=== PATIENT | female | born 1980 | race Caucasian/White ===

== ENCOUNTER 2016-11-06 09:31 | Emergency (ER) | payer BC, MEDICAID ==
[~2016-11-06] VITALS: Ht 165.1 cm; Wt 108.9 kg
[~2016-11-06 09:31] MED LIST: AC325T PO; HYDR-3583 PO; IBP600T1 PO; LEVO500T69 PO; PREN1TAB39 PO
[2016-11-06] MEDS ORDERED: OMEP20TA7 PO (10:12)
[2016-11-06] MEDS ORDERED: ALPR1TAB2 PO (10:12)
[2016-11-06] MEDS ORDERED: ONDANSETRON 4 MG/2 ML (SDV) Z0FRAN IVP ONE (10:30)
[2016-11-06] MEDS ORDERED: NS IV 1000 ML 1,000 ML IV SCH (10:30)
[2016-11-06] MEDS ORDERED: FAMOTIDINE 20MG/2ML IV (PEPCID) IVP ONE (10:30)
[2016-11-06 10:39] LABS: BASOPHILS % (AUTO) 0 % (0-10); EOSINOPHILS # (AUTO) 0.1 10^3/uL (0.0-0.3); EOSINOPHILS % (AUTO) 1 % (0-10); LYMPHOCYTES # (AUTO) 3.3 X 10^3 (1.0-4.0); LYMPHOCYTES % (AUTO) 34 % (12-44); MEAN CORPUSCULAR HEMOGLOBIN 31 PG (25-34); MEAN CORPUSCULAR HGB CONC 34 G/DL (32-36); MEAN CORPUSCULAR VOLUME 90 FL (80-99); MEAN PLATELET VOLUME 10.4 FL (7.4-10.4); MONOCYTES # (AUTO) 0.7 X 10^3 (0.0-1.0); MONOCYTES % (AUTO) 8 % (0-12); NEUTROPHILS # (AUTO) 5.5 X 10^3 (1.8-7.8); NEUTROPHILS % (AUTO) 57 % (42-75); PLATELET COUNT 327 10^3/uL (130-400); RED BLOOD COUNT 5.11 10^6/uL (4.35-5.85); RED CELL DISTRIBUTION WIDTH 12.3 % (10.0-14.5); WHITE BLOOD COUNT 9.7 10^3/uL (4.3-11.0)
[2016-11-06 10:45] LABS: BILIRUBIN,URINE NEGATIVE (NEGATIVE); KETONES,URINE NEGATIVE (NEGATIVE); LEUKOCYTE ESTERASE ,URINE NEGATIVE (NEGATIVE); NITRITE,URINE NEGATIVE (NEGATIVE); PH,URINE 6 (5-9); PROTEIN,URINE NEGATIVE (NEGATIVE); UROBILINOGEN,URINE NORMAL (NORMAL)
[2016-11-06 10:55] LABS: WBC,URINE 0-2 /HPF
[2016-11-06 10:56] LABS: ALANINE AMINOTRANSFERASE 28 U/L (0-55); ALBUMIN 4.8 G/DL (3.2-4.5); AMYLASE 87 U/L (25-125); ANION GAP 7 MMOL/L (5-14); ASPARTATE AMINO TRANSFERASE 20 U/L (5-34); BILIRUBIN,TOTAL 0.6 MG/DL (0.1-1.0); BLOOD UREA NITROGEN 7 MG/DL (7-18); BUN/CREATININE RATIO 9; CALCIUM 9.9 MG/DL (8.5-10.1); CARBON DIOXIDE 31 MMOL/L (21-32); CHLORIDE 103 MMOL/L (98-107); CREATININE SERUM 0.74 MG/DL (0.60-1.30); GFR ESTIMATED > 60; GLUCOSE 98 MG/DL (70-105); POTASSIUM 3.9 MMOL/L (3.6-5.0); SODIUM 141 MMOL/L (135-145)
[2016-11-06] MEDS ORDERED: KETOROLAC 30 MG/ML VIAL IVP STA (11:59)
--- NOTE | 2016-11-06 12:11 | ED Abdominal Pain ---
General Chief Complaint: Abdominal/GI Problems Stated Complaint: DEHYDRATION Nursing Triage Note: C/O VOMITING ET DIARRHEA FOR ABOUT 3 MONTHS. STATES WAS GIVEN OMEPRAZOLE FOR ABOUT 2 WEEKS. STATES IT DOESN'T HELP. STATES SHE'S ALSO BEEN HAVING BLOODY STOOLS RECENTLY. STATES PCP THOUGHT SHE MAY ULCERS. STATES STOMACH ISSUES MAY BE R/T ANXIETY. DOES HAVE APPT. WITH GI SPECIALIST ON WEDNESDAY. JUST STATES FEELS WORSE AND WEAKER TODAY. Sepsis Screen: No Definite Risk Source of Information: Patient, Spouse Exam Limitations: No Limitations History of Present Illness Time Seen By Provider: 11:40 Initial Comments 36-year-old female patient presents to the emergency department with complaints of intermittent upper quadrant abdominal pain, vomiting, diarrhea for 3 months. Patient reports worse with spicy foods and fatty foods. Was given omeprazole 20 mg daily approximately [address] Bazan. Patient states she is scheduled Wednesday with Dr. Sunshine for possible upper endoscopy. Reports pain, nausea, vomiting, and diarrhea worse today. Timing/Duration: Getting Worse, Intermittent, Other (3 month onset) Severity/Quality: Aching Location: Epigastric Radiation: RUQ Activities at Onset: Other (after eating) Modifying Factors: Worsens With Eating, Worsens With Palpation Allergies and Home Medications Allergies Coded Allergies: No Known Drug Allergies (Unverified , 06/26/11) Home Medications Alprazolam 1 Mg Tablet, 1 MG PO PRN, (Reported) Ibuprofen 600 Mg Tab, 600 MG PO Q6HR, #30 Ref 1 (Reported) Omeprazole 20 Mg Tablet.dr, 20 MG PO DAILY, (Reported) Ondansetron 8 Mg Tab.rapdis, 8 MG PO Q6H PRN for NAUSEA/VOMITING-1ST LINE, #10 Ref 0 Prescribed by: STANLEY CUBA on 11/06/16 1312 Review of Systems Constitutional: chills, No diaphoresis, No dizziness, No fever, No malaise Respiratory: Denies Cough, Denies Shortness of Air Cardiovascular: Denies Chest Pain, Denies Lightheadedness, Denies Palpitations Gastrointestinal: See HPI, Denies Abdomen Distended, Abdominal Pain, Denies Constipated, Diarrhea, Denies Difficulty Swallowing, Nausea, Poor Appetite, Poor Fluid Intake, Vomiting Genitourinary: Denies Burning, Denies Discharge, Denies Frequency, Denies Flank Pain, Denies Hematuria, Denies Pain Musculoskeletal: no symptoms reported Skin: no symptoms reported Psychiatric/Neurological: No Symptoms Reported All Other Systems Reviewed Negative Unless Noted: Yes (Negative excepted noted.) Past Ngpreby-Kvwihu-Kcrcen Hx Patient Social History Alcohol Use: Rarely Uses Recreational Drug Use: No Smoking Status: Current Everyday Smoker Type Used: Cigarettes Recent Foreign Travel: No Contact w/Someone Who Travel: No Recent Infectious Disease Expo: No Recent Hopitalizations: No (CHILDBIRTH 2011) Surgeries HX Surgeries: Yes Surgeries: Section Respiratory Hx Respiratory Disorders: No Cardiovascular Hx Cardiac Disorders: No Neurological Hx Neurological Disorders: No Reproductive System : No Hx Reproductive Disorders: No Genitourinary Hx Genitourinary Disorders: No Gastrointestinal Hx Gastrointestinal Disorders: No Gastrointestinal Disorders: Gastrointestinal Bleed, Chronic Diarrhea, Ulcer Musculoskeletal Hx Musculoskeletal Disorders: No Endocrine Hx Endocrine Disorders: No HEENT HX ENT Disorders: No Psychosocial Hx Psychiatric Problems: No Behavioral Health Disorders: Anxiety Blood Transfusions Hx Blood Disorders: No Reviewed Nursing Assessment Reviewed/Agree w Nursing PMH: Yes Family Medical History Significant Family History: No Pertinent Family Hx Physical Exam Vital Signs VS - Last 72 Hours, by Label 11/06/16 11/06/16 10:03 12:15 Temp 98.3 98.3 Pulse 86 Resp 20 B/P (MAP) 144/89 Pulse Ox 98 O2 Delivery Room Air Capillary Refill : Less Than 3 Seconds General Appearance: WD/WN, no apparent distress HEENT: PERRL/EOMI, pharynx normal Neck: supple, normal inspection Respiratory: lungs clear, normal breath sounds, no respiratory distress Cardiovascular: regular rate, rhythm, no murmur Gastrointestinal: normal bowel sounds, soft, no organomegaly, No distended, guarding (RUQ and epigastric), No rebound, tenderness (right upper quadrant and epigastric), No mass Extremities: normal capillary refill Back: normal inspection, no CVA tenderness Neurologic/Psychiatric: alert, normal mood/affect, oriented x 3 Skin: normal color, warm/dry Progress/Results/Core Measures Results/Orders Lab Results Laboratory Tests Test 11/06/16 10:21 11/06/16 10:30 Range/Units White Blood Count 9.7 4.3-11.0 10^3/uL Red Blood Count 5.11 4.35-5.85 10^6/uL Hemoglobin 15.7 11.5-16.0 G/DL Hematocrit 46 35-52 % Mean Corpuscular Volume 90 80-99 FL Mean Corpuscular Hemoglobin 31 25-34 PG Mean Corpuscular Hemoglobin Concent 34 32-36 G/DL Red Cell Distribution Width 12.3 10.0-14.5 % Platelet Count 327 130-400 10^3/uL Mean Platelet Volume 10.4 7.4-10.4 FL Neutrophils (%) (Auto) 57 42-75 % Lymphocytes (%) (Auto) 34 12-44 % Monocytes (%) (Auto) 8 0-12 % Eosinophils (%) (Auto) 1 0-10 % Basophils (%) (Auto) 0 0-10 % Neutrophils # (Auto) 5.5 1.8-7.8 X 10^3 Lymphocytes # (Auto) 3.3 1.0-4.0 X 10^3 Monocytes # (Auto) 0.7 0.0-1.0 X 10^3 Eosinophils # (Auto) 0.1 0.0-0.3 10^3/uL Basophils # (Auto) 0.0 0.0-0.1 10^3/uL Sodium Level 141 135-145 MMOL/L Potassium Level 3.9 3.6-5.0 MMOL/L Chloride Level 103 98-107 MMOL/L Carbon Dioxide Level 31 21-32 MMOL/L Anion Gap 7 5-14 MMOL/L Blood Urea Nitrogen 7 7-18 MG/DL Creatinine 0.74 0.60-1.30 MG/DL Estimat Glomerular Filtration Rate > 60 BUN/Creatinine Ratio 9 Glucose Level 98 70-105 MG/DL Calcium Level 9.9 8.5-10.1 MG/DL Total Bilirubin 0.6 0.1-1.0 MG/DL Aspartate Amino Transf (AST/SGOT) 20 5-34 U/L Alanine Aminotransferase (ALT/SGPT) 28 0-55 U/L Alkaline Phosphatase 90 40-136 U/L Total Protein 8.0 6.4-8.2 G/DL Albumin 4.8 H 3.2-4.5 G/DL Amylase Level 87 25-125 U/L Serum Test, Qualitative NEGATIVE NEGATIVE Urine Color YELLOW Urine Clarity CLEAR Urine pH 6 5-9 Urine Specific Trion 1.010 L 1.016-1.022 Urine Protein NEGATIVE NEGATIVE Urine Glucose (UA) NEGATIVE NEGATIVE Urine Ketones NEGATIVE NEGATIVE Urine Nitrite NEGATIVE NEGATIVE Urine Bilirubin NEGATIVE NEGATIVE Urine Urobilinogen NORMAL NORMAL MG/DL Urine Leukocyte Esterase NEGATIVE NEGATIVE Urine RBC (Auto) NEGATIVE NEGATIVE Urine RBC NONE /HPF Urine WBC 0-2 /HPF Urine Squamous Epithelial Cells 5-10 /HPF Urine Crystals NONE /LPF Urine Bacteria NEGATIVE /HPF Urine Casts NONE /LPF Urine Mucus NEGATIVE /LPF Urine Culture Indicated NO My Orders Orders - STANLEY CUBA Gallbladder [id number] (11/06/16 11:58) Ketorolac Injection (Toradol Injection) (11/06/16 11:59) Medications Given in ED Current Medications Medications Dose Ordered Sig/Guillermo Route Start Time Stop Time Status Last Admin Dose Admin Famotidine 20 mg ONCE ONCE IVP 11/06/16 10:30 11/06/16 10:34 DC 11/06/16 10:43 20 MG Ondansetron HCl 4 mg ONCE ONCE IVP 11/06/16 10:30 11/06/16 10:34 DC 11/06/16 10:43 4 MG Vital Signs/I&O Vital Sign - Last 12Hours 11/06/16 11/06/16 10:03 12:15 Temp 98.3 98.3 Pulse 86 Resp 20 B/P (MAP) 144/89 Pulse Ox 98 O2 Delivery Room Air Blood Pressure Mean: 107 Diagnostic Imaging Diagonstic Imaging: Ultrasound Plain Films/CT/US/NM/MRI: other (gallbladder) Reviewed: Reviewed by Me (radiology report reviewed by me) Departure Communication Progress Notes Laboratory and diagnostic findings discussed with the patient. Plan for discharge home with follow-up as an outpatient with Dr. Sunshine on Wednesday as previously scheduled. Impression Impression: Primary Impression: Upper abdominal pain Additional Impression: Nausea, vomiting and diarrhea Disposition: 01 HOME, SELF-CARE Condition: Improved Departure-Patient Inst. Decision time for Depature: 13:11 Referrals: AUGUSTO BAZAN MD (PCP/Family) Primary Care Physician Patient Instructions: Acute Abdomen (Belly Pain), Adult (DC) Add. Discharge Instructions: All discharge instructions reviewed with patient and/or family. Voiced understanding. Medications as instructed. Tylenol extra strength over-the- counter as directed for pain. No ibuprofen or Aleve. Strict low fat diet. Avoid spicy foods, fatty foods, carbonated beverages, caffeinated beverages, smoking, secondhand smoke, alcohol. Do not eat within 2 hours of lying down. Continue usual home medications. Follow-up with Dr. Sunshine Wednesday as previously scheduled for possible upper endoscopy and/or HIDA scan. Return to the emergency department for worsened pain, fever, vomiting, vomiting blood, abdominal swelling, or any other concerns. Scripts Ondansetron (Ondansetron Odt) 8 Mg Tab.rapdis 8 MG PO Q6H Y for NAUSEA/VOMITING-1ST LINE, #10 TAB 0 Refills Prov: STANLEY CUBA 11/06/16 Work/School Note: Work Release Form Date Seen in the Emergency Department: November 06, 2016 Return to Work: November 07, 2016 Restrictions: No Restrictions STANLEY CUBA November 06, 2016 12:11
--- NOTE | 2016-11-06 13:08 | Diagnostic Imaging Report ---
CLINICAL INDICATION: Patient with abdominal pain, nausea, vomiting, and dehydration. EXAM: Right upper quadrant ultrasound. COMPARISON: None. FINDINGS: This is a limited exam due to patient body habitus. The pancreatic tail is obscured by overlying bowel gas. The visualized portions of the pancreatic head and neck are grossly unremarkable. The liver is enlarged measuring 19.3 cm in craniocaudal dimension. The liver has normal echotexture and echogenicity. The liver surface is smooth. There is no intrahepatic or extrahepatic ductal dilation. The common bile duct measures 4.3 cm. The gallbladder is fluid distended with no significant abnormality seen. There is no stone or sludge noted. The gallbladder wall is within normal limits. There is no pericholecystic fluid. There is no sonographic Grace sign. There is no ascites. IMPRESSION: 1. The pancreas is not completely visualized. If there is concern for pancreatitis, then serology tests would help better evaluate. 2. Otherwise, there is no evidence of acute abdominal process seen on this ultrasound exam. 3. Hepatomegaly. Dictated by: Dictated on workstation # [id number]
[2016-11-06] MEDS ORDERED: ONDA8TAB13 PO (13:12)
[2016-11-06 13:30] VITALS: BP 142/70
== END 2016-11-06 13:30 | disposition home or self-care (01) ==
LOC: EDUNIT# 09:31 → ER 09:35
DX: R10.11 Right upper quadrant pain (principal); R16.0 Hepatomegaly, not elsewhere classified; R11.2 Nausea with vomiting, unspecified; R19.7 Diarrhea, unspecified; F17.210 Nicotine dependence, cigarettes, uncomplicated
CPT/HCPCS: 36415; 76705; 80053; 81000; 82150; 84703; 85025

== ENCOUNTER → 2016-12-07 | Outpatient (CLI) | payer BC ==
[~2016-12-07] MED LIST changes: +ALPR1TAB2 PO; +CATHETER FLUSH 10 ML SYR IV PRN; +OMEP20TA7 PO; +ONDA8TAB13 PO
--- NOTE | 2016-12-07 12:28 | Diagnostic Imaging Report ---
Indication: Right upper quadrant pain. Comparison: Gallbladder ultrasound 11/06/2016. Technique: Scintigraphic images were obtained following the intravenous administration of 5.43 mCi of technetium 99m labeled Choletec. Ejection fraction was calculated following the administration of a fatty meal. Region of interest was drawn around the gallbladder and a time/activity curve was generated. Discussion: Hepatic uptake and excretion are normal. There is normal appearance of activity within the gallbladder at 15 minutes and within the small bowel at 60 minutes. No retention activity seen within the common duct. Following the administration of a fatty meal, the gallbladder ejection fraction was calculated at 2.1%, markedly low. Findings could be seen with gallbladder dyskinesia or chronic cholecystitis. Impression: 1. No scintigraphic evidence of bile duct or cystic duct obstruction. 2. Markedly low gallbladder ejection fraction of 2.1%. Dictated by: Dictated on workstation # [id number]
== END ==
LOC: CARD 09:27
PROVIDERS: ATTEND Family Medicine
DX: R10.11 Right upper quadrant pain (principal)
CPT/HCPCS: 78227